=== PATIENT | male | born 1980 | race Caucasian/White ===

== ENCOUNTER 2020-08-28 10:16 | Outpatient (REF) | payer BC, SELFPAY ==
[2020-08-28 22:36] LABS: ALT 89 U/L (16-63); AST 34 U/L (15-37); Anion Gap 10.3 mmol/L (3-11); BUN 11 mg/dL (7-18); CO2 25.7 mmol/L (21.0-32.0); CREATININE 1.23 mg/dL (0.70-1.30); Calculated LDL 182 mg/dL (<100); Chloride 101 mmol/L (98-107); Cholesterol 255 mg/dL (<200); Glucose 99 mg/dL (74-106); HDL Cholesterol 40 mg/dL (40-60); Potassium 4.5 mmol/L (3.5-5.1); Sodium 137 mmol/L (136-145); Triglyceride 165 mg/dL (<150)
== END 2020-08-28 10:36 ==
LOC: NCHCN 10:16
PROVIDERS: Visit Provider Nurse Practitioner Family
DX: E78.5 Hyperlipidemia, unspecified (principal)
CPT/HCPCS: 80048; 80061; 84450; 84460

== ENCOUNTER 2021-09-05 14:59 | Outpatient (REF) | payer BC, SELFPAY ==
[2021-09-05 14:03] LABS: ALT 94 U/L (16-63); AST 37 U/L (15-37); Anion Gap 10.6 mmol/L (3-11); BUN 15 mg/dL (7-18); CO2 26.4 mmol/L (21.0-32.0); CREATININE 1.2 mg/dL (0.70-1.30); Calcium 9.2 mg/dL (8.5-10.1); Chloride 101 mmol/L (98-107); Glucose 107 mg/dL (74-106); Potassium 4.2 mmol/L (3.5-5.1); Sodium 138 mmol/L (136-145)
== END 2021-09-05 15:00 | disposition home or self-care (01) ==
LOC: NCHCN 14:59
PROVIDERS: Visit Provider Nurse Practitioner Family
DX: R94.5 Abnormal results of liver function studies (principal); E78.5 Hyperlipidemia, unspecified
CPT/HCPCS: 80048; 84450; 84460

== ENCOUNTER 2022-09-15 18:08 | Outpatient (REF) | payer BC, SELFPAY ==
[2022-09-15 14:56] LABS: HCT 48.3 % (40.0-50.0); HGB 16.9 g/dL (13.5-17.5); MCH 32.8 pg (27.0-33.0); MCV 94 fL (80-95); MPV 10.3 fL (8.0-11.0); Platelet Count 248 10^3/uL (130-400); RBC 5.16 10^6/uL (4.36-5.78); RDW 11.9 % (11.8-14.1); RDW-SD 41.5 fL
[2022-09-15 15:11] LABS: ALT 82 U/L (16-63); AST 34 U/L (15-37); Albumin 4.1 g/dL (3.4-5.0); Alkaline Phosphatase 94 U/L (46-116); Anion Gap 8.4 mmol/L (3-11); BUN 16 mg/dL (7-18); Bilirubin, Total 0.4 mg/dL (0.2-1.0); CO2 27.6 mmol/L (21.0-32.0); Calcium 9.6 mg/dL (8.5-10.1); Chloride 99 mmol/L (98-107); Estimated GFR 95.77 (mL/min/1.73m2); Glucose 100 mg/dL (74-106); Potassium 4.4 mmol/L (3.5-5.1); Sodium 135 mmol/L (136-145); Total Protein 8.1 g/dL (6.4-8.2)
== END 2022-09-15 18:09 | disposition home or self-care (01) ==
LOC: NCHCN 18:08
PROVIDERS: Visit Provider Family Medicine
DX: I10 Essential (primary) hypertension (principal); K21.9 Gastro-esophageal reflux disease without esophagitis; F90.9 Attention-deficit hyperactivity disorder, unspecified type; R94.5 Abnormal results of liver function studies; Z00.00 Encounter for general adult medical examination without abnormal findings
CPT/HCPCS: 80053; 85027

== ENCOUNTER 2023-12-23 13:35 | Outpatient (REF) | payer BC, SELFPAY ==
[2023-12-23 15:53] LABS: HCT 47.9 % (40.0-50.0); HGB 16.8 g/dL (13.5-17.5); MCH 32.5 pg (27.0-33.0); MCHC 35.1 % (32.0-36.0); MCV 93 fL (80-95); MPV 10.5 fL (8.0-11.0); Platelet Count 262 10^3/uL (130-400); RBC 5.17 10^6/uL (4.36-5.78); RDW 12.2 % (11.8-14.1); WBC 7.66 10^3/uL (4.4-10.8)
[2023-12-23 16:30] LABS: ALT 70 U/L (16-63); AST 20 U/L (15-37); Albumin 4.2 g/dL (3.4-5.0); Alkaline Phosphatase 98 U/L (46-116); Anion Gap 11.7 mmol/L (3-11); BUN 17 mg/dL (7-18); Bilirubin, Total 0.7 mg/dL (0.2-1.0); CO2 25.3 mmol/L (21.0-32.0); CREATININE 1.1 mg/dL (0.70-1.30); Calcium 9.4 mg/dL (8.5-10.1); Calculated LDL 161 mg/dL (<100); Chloride 104 mmol/L (98-107); Cholesterol 239 mg/dL (<200); Estimated GFR 84.89 (mL/min/1.73m2); Glucose 118 mg/dL (74-106); HDL Cholesterol 47 mg/dL (40-60); Potassium 4.4 mmol/L (3.5-5.1); Sodium 141 mmol/L (136-145); Total Protein 8.2 g/dL (6.4-8.2); Triglyceride 158 mg/dL (<150)
== END 2023-12-23 13:36 | disposition home or self-care (01) ==
LOC: NCHCN 13:35
PROVIDERS: Visit Provider Nurse Practitioner Family
DX: Z00.00 Encounter for general adult medical examination without abnormal findings (principal); Z13.220 Encounter for screening for lipoid disorders; Z13.228 Encounter for screening for other metabolic disorders; Z13.0 Encounter for screening for diseases of the blood and blood-forming organs and certain disorders involving the immune mechanism
CPT/HCPCS: 80053; 80061; 85027

== ENCOUNTER 2024-11-17 10:02 | Day surgery (SDC) | payer BC, SELFPAY ==
[2024-11-17 10:26] VITALS: BP 150/81; PULSE 83; RESP 20; TEMP 36.5; O2SAT 98
--- NOTE | 2024-11-17 10:36 | W.ANESPRE ---
General Info Date of Service Date Performed: 11/17/24 Height: 5 ft 11 in Weight: 135 kg Body Mass Index (BMI): 41.5 Surgical Procedure: Operation Date: 11/17/24 11:05 Proposed Procedure Side Surgeon paco Beaver MD Meds Allergies and Home Medications Allergies Allergy/AdvReac Type Severity Reaction Status Date / Time No Known Allergies Allergy Verified 11/17/24 10:31 Home Medication ?Medication ?Instructions ?Recorded amlodipine 10 mg tablet 10 mg PO DAILY 10/18/24 dextroamphetamine-amphetamine ER 10 mg PO DAILY 10/18/24 10 mg 24hr capsule,extend release hydrochlorothiazide 25 mg tablet 25 mg PO DAILY 10/18/24 lisinopril 40 mg tablet 40 mg PO DAILY 10/18/24 omeprazole 20 mg capsule,delayed 20 mg PO DAILY 10/18/24 release bisacodyl 5 mg tablet,delayed 5 mg PO ONCE #4 tabs 10/26/24 release (Dulcolax (bisacodyl)) polyethylene glycol 3350 17 17 g PO ONCE #238 grams 10/26/24 gram/dose oral powder Current Visit Medications: Current Medications Generic Name Dose Route Start Last Admin Trade Name Freq PRN Reason Stop Dose Admin Ringer's Solution 1,000 mls @ 80 mls/hr 11/17/24 06:00 IV 11/17/24 23:59 INFUSION CHEMA IV Miscellaneous Supplies 1 each 11/17/24 06:00 Iv Access IV 11/17/24 23:59 DIRECTED CHEMA Sodium Chloride 0 ml 11/17/24 06:00 Normal Saline Flush 10 Ml Syr IV 11/17/24 23:59 PRN PRN Sodium Chloride 0 ml 11/17/24 06:00 Normal Saline 10 Ml Vial IJ 11/17/24 23:59 DIRECTED PRN Sterile Water 0 ml 11/17/24 06:00 Water,Injection,Sterile 10 Ml Vial IJ 11/17/24 23:59 DIRECTED PRN PFSH Active Problems Active Problems: Problem Status Onset Code Essential hypertension Acute I10 ADHD Acute F90.9 Hyperlipidemia Acute E78.5 Medical History Medical History GERD without esophagitis Ventricular premature complex Obesity Surgical History Surgical History Hx of wisdom tooth extraction Hx of eye surgery Tobacco Smoking/Tobacco Use Status: Never Alcohol Alcohol Intake: current Alcohol intake frequency: 0-2 drinks per day Alcohol type: beer Substance Use Substance use: Never Substance use type: does not use Vital Signs and Lab Results Vital Signs Most Recent Vital Signs in EMR: Most Recent Vital Signs Temp Pulse Resp BP Pulse Ox 36.5 C 83 20 150/81 H 98 11/17/24 10:11/17/24 10:11/17/24 10:11/17/24 10:11/17/24 10:26 Lab Results Blood Type / Crossmatch: No Data to Display Complete Blood Count: No Data to Display Complete Metabolic Panel: No Data to Display Liver Function Panel: No Data to Display Coagulation Panel: No Data to Display Cardiac Panel: No Data to Display Arterial Blood Gas: No Data to Display Venous Blood Gas: No Data to Display Pancreas Panel: No Data to Display Thyroid Panel: No Data to Display Infectious Disease: No Data to Display Blood Cultures: No Data to Display Toxicology Panel: No Data to Display Anesthesia Assessment and Plan Anesthesia History Personal History: No History of Anesthesia Complications Family History: No Family History of Anesthesia Complications Exercise Tolerance Exercise Tolerance: Metabolic Equivalents>4 Pertinent Negatives Pertinent Negatives: No Symptoms of GERD Cardiac & Pulmonary Exam Cardiac Exam: Normal S1/S2 Heart Sounds Pulmonary Exam: Clear Bilateral Breath Sounds Implantable Cardiac Device Does patient have a Pacemaker or an ICD?: No Airway Exam Known Difficult Airway: No Mallampati Class: 1 Mouth Opening: Normal (> 3cm) Thyromental Distance: Greater than 3 cm Neck Range of Motion: Full ROM Neck Circumference: Normal Teeth Condition: Normal Dentition ASA Classification ASA Score: ASA 3 Emergency Case?: No NPO Status NPO Status: NPO Clears >2 hours, Solids >8 hours Anesthesia Plan Resuscitation Status: Full Code Anesthesia Technique: General Anesthesia Airway Planned: Natural Airway Monitors Used: Standard Monitors
[2024-11-17 10:37] VITALS: BMI 41.5
[2024-11-17] MEDS: Lactated Ringers 1,000 ML 80 ML IV (11:21)
--- NOTE | 2024-11-17 11:56 | W.COLOREPORT ---
Date of service: 11/17/24 Time of Service: 11:56 Colonoscopy Report Date of procedure: 11/17/24 Pre-op diagnosis general: Average risk for colon cancer Post-op diagnosis procedure note: same Procedure: Screening colonoscopy Surgeon: Jackie Beaver Anesthesia Type: General:No Airway Estimated blood loss (mL): 0 Pathology: none sent Complications: None Disposition: same day Indications: Average risk patient presents for screening colonoscopy Findings: Excellent prep, normal colon mucosa with no polyps. Procedure Description: After the risks, benefits, and alternatives of the procedure were thoroughly explained, informed consent was obtained. The Patient is brought to the procedure room and time out is performed confirming patient identity, nature of procedure. Patient is connected to monitoring devices including O2 sat, EKG and given supplemental oxygen per anesthesia. After appropriate anesthetic is obtained, patient is placed in the left lateral decubitus position and digital rectal exam performed with the findings noted . The colonoscope is inserted through the anus and guided under direct vision to the proximal colon as confirmed by presence of the appendiceal orifice and the ileocecal valve. The colonoscope is then slowly withdrawn , inspecting all aspects of the mucosa completely. Findings and any associated intervention, are noted above. The colonoscope was then completely withdrawn from the patient and the procedure terminated. The patient tolerated the procedure well and is transferred back to the Day surgery unit in stable condition.
[2024-11-17 12:00] VITALS: BP 132/80; PULSE 86; RESP 16; TEMP 36.1; O2SAT 94
[2024-11-17 12:30] VITALS: BP 143/89; PULSE 78; RESP 16; TEMP 36.3; O2SAT 98
--- NOTE | 2024-11-17 13:27 | W.ANESPOSTOP ---
Postoperative Evaluation Date, Time and Location Date Performed: 11/17/24 Time Performed: 12:40 Patient Location: Day Surgery Unit Vital Signs Most Recent Imported Vital Signs: Most Recent Vital Signs Temp Pulse Resp BP Pulse Ox 36.3 C L 78 16 143/89 H 98 11/17/24 12:30 11/17/24 12:30 11/17/24 12:30 11/17/24 12:30 11/17/24 12:30 Pain Score Most Recent Pain Score: Most Recent Pain Score Pain Level 0 11/17/24 12:30 Assessment Mental Status: Awake (Alert & Oriented to Patient Baseline) Airway and Respiratory Function: Patent airway with normal (patient baseline) respiratory exam Cardiovascular Function: Hemodynamically Stable Hydration Status: Adequately Hydrated Nausea & Vomiting: No Nausea or Vomiting Pain: Pt. Denies Any Pain Peripheral Nerve Block: Patient did not receive a nerve block
== END 2024-11-17 12:45 | disposition home or self-care (01) ==
PROVIDERS: PCP Nurse Practitioner Family; Visit Provider Surgery
PROC: 0DJD8ZZ Inspection of Lower Intestinal Tract, Via Natural or Artificial Opening Endoscopic (ICD-10-PCS; CPT 45378; principal; 2024-11-17 11:00)
DX: Z12.11 Encounter for screening for malignant neoplasm of colon (principal); I10 Essential (primary) hypertension
CPT/HCPCS: 45378; J2250; J2704

== ENCOUNTER 2024-12-21 08:51 | Outpatient (REF) | payer BC, SELFPAY ==
[2024-12-21 14:44] LABS: HCT 47.4 % (40.0-50.0); HGB 16.4 g/dL (13.5-17.5); MCH 32.8 pg (27.0-33.0); MCHC 34.6 % (32.0-36.0); MCV 95 fL (80-95); MPV 9.8 fL (8.0-11.0); Platelet Count 266 10^3/uL (130-400); RDW 12.5 % (11.8-14.1); RDW-SD 43.5 fL; WBC 8.38 10^3/uL (4.4-10.8)
[2024-12-21 16:23] LABS: COMMENT (LAB VIEW ONLY) 114.88 mg/dL; Microalb ug/mg Crea 26.1 ug/mg Cr
[2024-12-21 18:23] LABS: Hemoglobin A1C 5.4 % (<5.7)
== END 2024-12-21 08:52 | disposition home or self-care (01) ==
LOC: NCHCN 08:51
PROVIDERS: PCP Nurse Practitioner Family; Visit Provider Nurse Practitioner Family
DX: I10 Essential (primary) hypertension (principal); Z00.00 Encounter for general adult medical examination without abnormal findings; E66.9 Obesity, unspecified
CPT/HCPCS: 85027; 82043; 82570; 83036

== ENCOUNTER 2025-06-27 08:53 | Outpatient (REF) | payer BC, SELFPAY ==
[2025-06-27 15:17] LABS: ALT 61 U/L (16-63); AST 28 U/L (15-37); Albumin 4.2 g/dL (3.4-5.0); Alkaline Phosphatase 88 U/L (46-116); Anion Gap 10.1 mmol/L (3-11); BUN 17 mg/dL (7-18); Bilirubin, Total 0.5 mg/dL (0.2-1.0); CO2 28.9 mmol/L (21.0-32.0); Calcium 9.7 mg/dL (8.5-10.1); Chloride 98 mmol/L (98-107); Estimated GFR 107.33 (mL/min/1.73m2); Glucose 107 mg/dL (74-106); Potassium 4.4 mmol/L (3.5-5.1); Sodium 137 mmol/L (136-145); Total Protein 8.2 g/dL (6.4-8.2)
== END 2025-06-27 08:54 | disposition home or self-care (01) ==
LOC: NCHCN 08:53
PROVIDERS: PCP Nurse Practitioner Family; Visit Provider Nurse Practitioner Family
DX: I10 Essential (primary) hypertension (principal)
CPT/HCPCS: 80053